=== PATIENT | female | born 1980 | race Caucasian/White ===

== ENCOUNTER 2016-09-25 22:11 | Emergency (ER) | payer BC ==
[~2016-09-25 22:11] MED LIST: CLON1TAB PO; FLUT9.9S NAS; LEVO100T PO; METH5TAB12 PO; ONDA4TAB7 PO; VORT10TA PO
== END 2016-09-25 23:50 | disposition left against medical advice (07) ==
LOC: ED 23:44
DX: N93.9 Abnormal uterine and vaginal bleeding, unspecified (principal)

== ENCOUNTER 2018-10-20 21:35 | Emergency (ER) | payer SELFPAY ==
[~2018-10-20] VITALS: Ht 167.6 cm; Wt 59.9 kg
[2018-10-20 21:36] VITALS: BP 127/79
--- NOTE | 2018-10-20 22:41 | NUR ---
FIRST CONTACT WITH PT. PT HERE FOR DIZZINESS. PT DENIES LOC BUT VISION BECAME SPOTTY AND THEN SHE SAT DOWN. PT HAS HX OF LOW BP BUT HAS NEVER FELT THIS DIZZY. PT'S AOX4. RESPS EVEN AND UNLABORED.
== END 2018-10-20 22:45 | disposition home or self-care (01) ==
LOC: ED 22:39
DX: R42 Dizziness and giddiness (principal)
CPT/HCPCS: 93005; 99283